=== PATIENT | female | born 1960 | race Two or more races ===

== ENCOUNTER 2025-01-08 12:49 | Emergency (ER) | payer MEDICARE, MEDICAID, SELFPAY ==
[2025-01-08 13:00] VITALS: BP 131/79; PULSE 89; RESP 20; TEMP 37.2; O2SAT 94; BMI 33.3
--- NOTE | 2025-01-08 13:03 | XR_ITS ---
Examination: CT brain head without contrast. 2-D sagittal coronal reconstructions Date and time of exam:January 08, 2025 1418 hours INDICATIONS: Onset headache today CTDI: vol (mGy):45.6 DLP: (mGycm):949 Technique: Multiple CT axial sections of the brain have been obtained, 5 mm slice thickness. Contrast has not been administered. 2-D sagittal, coronal reconstructions have been obtained Low dose protocols were performed. One or more of the following dose reduction techniques were used; automated exposure control, adjustment of the mA and/or KV according to patient size, use of iterative reconstruction technique. Findings: No significant ventricular enlargement. Intra-axial or extra-axial hemorrhage density is not seen. No mass effect or midline shift Basal cisterns are not remarkable. Fourth ventricle is midline. Cranial vault intact. Chronic frontal ethmoid maxillary antral sinusitis Impression: Negative for acute hemorrhage, mass effect or midline shift
--- NOTE | 2025-01-08 13:03 | XR_ITS ---
Examination: PA lateral chest 2 views TECHNIQUE: Upright PA lateral chest 2 views Exam date and time: January 08, 2025 1327 hours Comparison March 23, 2024 INDICATIONS: Headaches chest pain beginning 3 days ago. FINDINGS: Normal heart size Transvenous bipolar dual-chamber cardiac leads satisfactory position Moderate vascular congestion. No lobar pneumonia Significant osteopenia IMPRESSION: Findings consistent with early heart failure
[2025-01-08] MEDS: METOCLOPRAMIDE 5 MG TABLET 10 MG PO (13:10)
[2025-01-08] MEDS: HYDROcodone/APAP 5/325 TABLET 1 TAB PO (13:10)
--- NOTE | 2025-01-08 16:07 | PD.EDHA ---
ED Headache RME/HPI General Chief Complaint: Headache Stated Complaint: LEFT SINUS HEADACHE W/ CHEST CONGESTION; HX DEFRIB Time Seen by Provider: 01/08/25 13:05 Arrival date/time: 01/08/25 12:49 64-year-old female with history significant for CHF, hypertension, pacemaker presents to the emergency department today for complaints of headache, nasal congestion and believes she has sinus infection Limitations: no limitations Related Data Home Medications ?Medication ?Instructions ?Recorded ?Confirmed abatacept 125 mg/mL subcutaneous 125 mg subcut QWEEK 05/19/22 05/22/22 syringe (Orencia) albuterol sulfate 90 mcg/actuation 2 puff inhalation Q6H PRN Wheezing 05/19/22 05/22/22 aerosol inhaler azathioprine 50 mg tablet 50 mg PO QDAY 05/19/22 05/22/22 carvedilol 3.125 mg tablet 3.125 mg PO BID 05/19/22 05/22/22 cyclosporine 0.05 % eye drops in a 1 drp ophthalmic (eye) Q12H 05/19/22 05/22/22 dropperette (Restasis) famotidine 40 mg tablet 40 mg PO QDAY 05/19/22 05/22/22 levothyroxine 175 mcg tablet 175 mcg PO QDAY 05/19/22 05/22/22 loratadine 10 mg tablet 1 tab PO DAILY 05/19/22 05/22/22 pregabalin 75 mg capsule 75 mg PO TID 05/19/22 05/22/22 sertraline 50 mg tablet 50 mg PO QDAY 05/19/22 05/22/22 white petrolatum-mineral oil 57.3 1 applic ophthalmic (eye) QID PRN 05/19/22 05/22/22 %-42.5 % eye ointment (Lubricant Dry Eyes Eye) Previous Rx's ?Medication ?Instructions ?Recorded atorvastatin 20 mg tablet 40 mg (2 x 20 mg) PO HS #60 tabs 07/11/22 furosemide 20 mg tablet (Lasix) 20 mg PO Q OTHER DAY #30 tabs 07/11/22 losartan 25 mg tablet 25 mg PO QDAY #30 tabs 07/11/22 spironolactone 25 mg tablet 25 mg PO BID #60 tabs 07/11/22 naproxen 500 mg tablet 500 mg PO BID #30 tabs 02/12/23 hydrocodone 5 mg-acetaminophen 325 1 tab PO BID PRN pain #5 tabs 12/24/22 mg tablet amoxicillin 875 mg-potassium 1 tab PO BID 7 days #14 tabs 01/08/25 clavulanate 125 mg tablet benzonatate 100 mg capsule 100 mg PO TID #14 caps 01/08/25 Allergies Allergy/AdvReac Type Severity Reaction Status Date / Time No Known Allergies Allergy Verified 01/08/25 12:53 Review of Systems Review of Systems Systems Reviewed: All systems reviewed, normal except as documented Constitutional Constitutional: Reports system reviewed and no additional complaints, except as documented, Denies fever(s) and Denies headache(s) Eyes Eyes: Reports system reviewed and no additional complaints, except as documented and Denies blurry vision ENT Ears, Nose, Mouth, and Throat: Reports system reviewed and no additional complaints, except as documented, Denies headache(s), Denies nasal congestion and Denies nasal discharge Cardiovascular Cardiovascular: Reports system reviewed and no additional complaints, except as documented, Denies chest pain and Denies dyspnea Respiratory Respiratory: Reports system reviewed and no additional complaints, except as documented, Denies chest congestion, Denies cough and Denies dyspnea Gastrointestinal Gastrointestinal: Reports system reviewed and no additional complaints, except as documented and Denies abdominal pain Integumentary/Breasts Skin/Breast: Reports system reviewed and no additional complaints, except as documented and Denies rash Neurologic Neurologic: Reports system reviewed and no additional complaints, except as documented, Reports as per HPI and Denies headache(s) Past Medical History Past Medical History NEUROLOGIC: Positive Migraine; Negative Neurological Disorders or Seizures CARDIAC: Positive Cardiac Disorders, Cardiac Arrhythmia, Heart Murmur, Edema and Hypertension; Negative Congestive Heart Failure, Cellulitis or Varicose Veins RESPIRATORY: Negative Chronic Obstructive Pulmonary Disease (COPD), Asthma, Tuberculosis, Pulmonary Embolism or Sleep Apnea GASTROINTESTINAL: Positive Gastrointestinal Disorders and Gastroesophageal Reflux Disease; Negative Hepatitis GENITOURINARY: Negative Genitourinary Disorders or Renal Disease REPRODUCTIVE: Positive Previous Pregnancies MUSCULOSKELETAL: Positive Musculoskeletal Disorders, Arthritis, Rheumatoid Arthritis, Osteoporosis and Fibromyalgia ENT: Positive Cataracts ENDOCRINE: Positive Endocrine Disorders and Hypothyroidism; Negative Diabetes Mellitus Type 1 or Diabetes Mellitus Type 2 HEMATOLOGIC: Negative Blood Disorders or Sickle Cell Disease PSYCHO/SOCIAL: Positive Depression and Anxiety OTHER HISTORY: Negative Hospitalization, Autoimmune Disease, Shingles, Falls, Blood Transfusions, Blood Transfusion Reaction, Anesthesia Reactions, Chemotherapy, Radiation Therapy, MRSA, Chicken Pox, Measles, Mumps or Cancer Family History FAMILY HISTORY: Positive Family Gastrointestinal Problems and Family Surgery; Negative Family Psychiatric Problems, Family Respiratory Disorders, Family Cardiac Disorders, Family Cancer or Family Anesthesia Reaction Surgical History SURGICAL: Positive Pacemaker (defibrillator in place) and Tubal Ligation; Negative Cardiac Surgery, Abdominal Surgery, Nephrectomy or Joint Replacement Social History SMOKING STATUS: Light (< 1 pack/day) SUBSTANCE USE: does not use ED Exam General Limitations: Present no limitations General appearance: Present alert and in no apparent distress Head Head exam: Present atraumatic, normocephalic and normal inspection Eye Eye exam: Present normal appearance, PERRL and EOMI; Absent conjunctival injection ENT ENT exam: Present normal exam, normal oropharynx and mucous membranes moist Neck Neck exam: Present normal inspection, full ROM and trachea midline Chest Chest inspection: Present normal inspection and symmetric chest wall rise Respiratory Respiratory exam: Present normal lung sounds bilaterally; Absent respiratory distress Cardiovascular Cardiovascular exam: Present regular rate, normal rhythm and normal heart sounds Abdominal Exam Abdominal exam: Present soft and normal bowel sounds; Absent distention, tenderness, guarding, rebound or rigidity Extremities Exam Extremities exam: Present normal inspection and full ROM Back Exam Back exam: Present normal inspection and full ROM Neurological Exam Neurological exam: Present alert, oriented X3, CN II-XII intact, normal gait and reflexes normal; Absent motor sensory deficit Psychiatric Psychiatric exam: Present normal affect and normal mood Skin Skin exam: Present warm, dry, intact and normal color; Absent rash Course Quality Measures none Orders Category Date Time Status Bedside Influenza A&B Antigen Test NOW Care 01/08/25 13:[address] head/brain wo con Stat Exams 01/08/25 13:03 Completed XR chest 2V Stat Exams 01/08/25 13:03 Completed HYDROcodone*/APAP 5/325 [[place] 5/325] Med 01/08/25 13:03 Discontinued 1 tab PO X1 ONE Metoclopramide [Reglan] Med 01/08/25 13:03 Discontinued 10 mg PO X1 ONE Vital Signs Vital signs: Vital Signs Temperature 99.0 F 01/08/25 13:00 Pulse Rate 89 01/08/25 13:00 Respiratory Rate 20 01/08/25 13:00 Blood Pressure 131/79 H 01/08/25 13:00 Pulse Oximetry (%) 94 L 01/08/25 13:00 Oxygen Delivery Method Room Air 01/08/25 13:00 O2 saturation 94% room air Headache MDM Narrative MDM Narrative:: 64-year-old female with history significant for CHF, hypertension, pacemaker presents to the emergency department today for complaints of headache, nasal congestion and believes she has sinus infection On exam patient well-appearing patient does not appear ill or toxic patient does not appear in acute distress Patient has URI symptoms patient has cough, congestion runny nose and patient reports sinus pressure Chest x-ray obtained no acute pneumonic infiltrates noted Patient checked for flu which came back negative CT scan of the head obtained no acute emergent findings noted but patient appears to have sinusitis which may be acute on chronic Patient discharged home in no distress to follow-up with primary care doctor in the next 24 to 48 hours and for any worsening symptoms to return to the ER immediately Patient data External records reviewed:: [facility] previous records Clinical information provided by:: patient Social determinants that could affect healthcare access:: none Patient has the following chronic illnesses:: None How is presenting disease/condition affected by chronic disease/condition?: no chronic disease Evaluation data The following diagnostics were reviewed and interpreted by me:: lab results and radiology exam(s) Lab and/or radiology exams considered but not ordered:: Labs radiology obtained Interpretation Summary: Reviewed by me Medications / Prescriptions Medications or Prescriptions considered but not ordered:: Given Medication administrations:: Medication Administration History Discontinued Medications Hydrocodone Bitart/Acetaminophen (Hydrocodone/Apap 5/325 Tablet) 1 tab PO X1 ONE Stop: 01/08/25 13:04 Last Admin: 01/08/25 13:10 Dose: 1 tab Documented By: AMADOU Metoclopramide HCl (Metoclopramide 5 Mg Tablet) 10 mg PO X1 ONE Stop: 01/08/25 13:04 Last Admin: 01/08/25 13:10 Dose: 10 mg Documented By: AMADOU Given Consultations Consultation(s) initiated? (list below): No Diagnosis Differential diagnosis headache: migraine, tension headache, subarachnoid hemorrhage and headache Most likely diagnosis given after review of the tests above:: Headache Admission Indicated Admission indicated?: not indicated Admission Request Was there a request for admission?: No Disposition Plan Disposition Plan: Discharge Discharge Attestation Discharge Attestation: The patient and all family members were given an opportunity to ask questions and understood the discharge instructions. Discharge instructions specifically effects, indications for sooner follow up or return to the emergency department, and the expected course of current diagnosis. Patient condition: Stable Discharge Plan Plan Patient Disposition: HOME (Self Care) Disposition Comment: Stable Prescriptions/Referrals Prescriptions/Med Rec: New benzonatate 100 mg capsule 100 mg PO TID Qty: 14 0RF amoxicillin-pot clavulanate 875-125 mg tablet 1 tab PO BID 7 Days Qty: 14 0RF No Action levothyroxine 175 mcg Tablet 175 mcg PO QDAY famotidine 40 mg Tablet 40 mg PO QDAY azathioprine 50 mg Tablet 50 mg PO QDAY carvedilol 3.125 mg Tablet 3.125 mg PO BID Rx Instructions: must administer with a meal/food albuterol sulfate 90 mcg/actuation Hfa Aerosol Inhaler 2 puff INHALATION Q6H PRN (Reason: Wheezing) sertraline 50 mg Tablet 50 mg PO QDAY loratadine 10 mg tablet 1 tab PO DAILY Patient Comments: TAKE 1 TABLET BY MOUTH DAILY FOR ALLERGIES AND INSECT BITES cyclosporine [Restasis] 0.05 % Dropperette 1 drp OPHTHALMIC (EYE) Q12H pregabalin 75 mg Capsule 75 mg PO TID Lubricant Eye 57.3-42.5 % Ointment 1 applic OPHTHALMIC (EYE) QID PRN (Reason: Dry Eyes) Orencia 125 mg/mL Syringe 125 mg SUBCUT QWEEK atorvastatin 20 mg Tablet 40 mg PO HS Qty: 60 0RF losartan 25 mg Tablet 25 mg PO QDAY Qty: 30 0RF spironolactone 25 mg Tablet 25 mg PO BID Qty: 60 0RF furosemide [Lasix] 20 mg tablet 20 mg PO Q OTHER DAY Qty: 30 0RF hydrocodone-acetaminophen 5-325 mg tablet 1 tab PO BID MDD 2 PRN (Reason: pain) Qty: 5 0RF naproxen 500 mg tablet 500 mg PO BID Qty: 30 0RF Referrals: Chris (PCP)Ryder MD [Primary Care Provider] - In 1 week Problem List Clinical Impression: Sinusitis, Cough Patient/Caregiver Discharge Instructions Education Materials: Causes of Sinusitis Additional Instructions: Please follow up with your primary care doctor in the next 24-48hrs for any worsening symptoms return here immediately Print Language: Setswana Stand Alone Forms: Francheska Award Info., Patient Portal Info Letter PA/RESPIRATORY MANAGER Supervising Physician PA/RESPIRATORY MANAGER Supervising Physician: Dr Longoria
== END 2025-01-08 16:20 | disposition home or self-care (01) ==
PROVIDERS: Emergency Provider Emergency Medicine; PCP Family Medicine
DX: J32.8 Other chronic sinusitis (principal); F17.210 Nicotine dependence, cigarettes, uncomplicated
CPT/HCPCS: 70450; 71046; 99284; A9270

== ENCOUNTER → 2025-01-15 | Outpatient (CLI) | payer MEDICARE, SELFPAY ==
--- NOTE | 2025-01-15 14:20 | XR_ITS ---
Examination: Bone densitometry Date and time of exam:January 15, 2025 1350 hours INDICATIONS: Menopause age 49, steroid administration with COPD Technique: Lumbar spine and hip total bone mineralization values of an calculated. Peak reference and age match control results have been displayed. Findings: Lumbar spine total bone mineralization is0.694 gm/cm2. This is 3.2 standard deviations below peak reference. This is 1.4 standard deviations below age-matched controls. Hip total bone mineralization is 0.613 gm/cm2 This is 2.6 standard deviations below peak reference. This is 1.5 standard deviations below age-matched controls Impression: There is osteoporosis based on lumbar spine measurements. There is osteoporosis based on hip measurements
--- NOTE | 2025-01-15 14:45 | XR_ITS ---
Examination: Screening digital mammography, bilateral Computer aided detection 3-D breast Tomosynthesis, bilateral Date and time of exam: January 15, 2025 1333 hours Indication: Screening Technique: Nonmagnified MLO, CC views of the breasts to been obtained, reconstructed from 3-D Tomosynthesis images. R2 computer aided detection program utilized for evaluation of suspicious masses and/or abnormal calcifications. 3-D Tomosynthesis images obtained. Findings: Scattered areas of fibroglandular density. Benign calcifications. No suspicious masses Pulse generator in the left axilla degrades left MLO image quality Impression: BI-RADS category II: Benign Findings. Recommend 1 year follow-up mammogram. Pulse generator in the left axilla degrades left MLO breast image quality, recommend baseline bilateral breast sonography follow-up
== END | disposition home or self-care (01) ==
PROVIDERS: Referring Provider Family Medicine; Visit Provider Family Medicine
DX: Z12.31 Encounter for screening mammogram for malignant neoplasm of breast (principal); R92.323 Mammographic fibroglandular density, bilateral breasts; R92.1 Mammographic calcification found on diagnostic imaging of breast; M81.0 Age-related osteoporosis without current pathological fracture
CPT/HCPCS: 77063; 77067; 77080

== ENCOUNTER → 2025-04-17 | Outpatient (CLI) | payer MEDICARE, SELFPAY ==
--- NOTE | 2025-04-17 09:15 | XR_ITS ---
Examination: Breast ultrasound complete, bilateral Date and time of exam: April 17, 2025 0825 hours INDICATIONS: Limited mammogram January 15, 2025 secondary to cardiac pulse generator Technique: Real-time grayscale ultrasonographic imaging bilateral breasts, including all 4 quadrants as well as nipple retroareolar and axillary regions. Findings: Sonographic images right and left breast demonstrated no cystic or solid masses IMPRESSION: BI-RADS Category 1: Negative study
== END | disposition home or self-care (01) ==
PROVIDERS: PCP Family Medicine; Referring Provider Family Medicine; Visit Provider Family Medicine
DX: N63.0 Unspecified lump in unspecified breast (principal)
CPT/HCPCS: 76641

== ENCOUNTER 2025-08-17 12:43 | Emergency (ER) | payer MEDICARE, MEDICAID, SELFPAY ==
[2025-08-17 12:45] VITALS: BMI 31.3
[2025-08-17 13:03] VITALS: BP 121/78; PULSE 88; RESP 18; TEMP 36.9; O2SAT 100
--- NOTE | 2025-08-17 13:10 | PD.EDRME ---
Rapid Medical Screening Exam [facility] Arrival date/time: 08/17/25 12:43 65-year-old female with a history of hypertension, hyperlipidemia, hypothyroidism presents to the emergency room with a chief complaint of a bilateral rash to her arms. Patient also states she has low platelet count and was told to come to the emergency room if her rash does not go away I have greeted and performed a focused initial assessment of this patient. A comprehensive ED assessment and evaluation of the patient, analysis of all test results, and completion of the medical decision making process will be conducted by additional ED providers. Chief Complaint: General Adult/Misc Complain Time Seen by Provider: 08/17/25 12:56 Vital signs: Vital Signs Temperature 98.5 F 08/17/25 13:03 Pulse Rate 88 08/17/25 13:03 Respiratory Rate 18 08/17/25 13:03 Blood Pressure 121/78 08/17/25 13:03 Pulse Oximetry (%) 100 08/17/25 13:03 Oxygen Delivery Method Room Air 08/17/25 13:03 Vital signs reviewed by provider: Yes Exam: Bilateral upper extremity rash Clear bilateral lung sounds. Strong and regular rhythm S1 and S2 noted Clinical Impression: Petechiae/anemia/
[2025-08-17 13:44] LABS: Collection Type, Urine Clean Catch
[2025-08-17 13:58] LABS: Bilirubin,Urine Negative (Negative); Blood,Urine Negative (Negative); Clarity,Urine Clear (Clear/Hazy); Color,Urine Colorless (Lt Yel-Yel); Culture Indicated,Urine Not Indicated; Glucose, Urine Negative (Negative); Ketones,Urine Negative (Negative); Leukocyte Esterase,Urine Negative (Negative); Nitrite,Urine Negative (Negative); PH,Urine 6.5 (5.0-7.0); Protein,Urine Negative (Neg - Trace); RBC,Urine < 1 /hpf (0-3); Specific Gravity,Urine 1.006 (1.001-1.035); Squamous Epithelial Cell,Urine < 1 /hpf (0-5); Urobilinogen,Urine Negative mg/dL (0.0-1.0); WBC,Urine < 1 /hpf (0-5)
[2025-08-17 14:32] LABS: Basophils # (Auto) 0.0 Thou/mm3 (0.0-0.2); Basophils % (Auto) 0 % (0-2.5); Eosinophils # (Auto) 0.2 Thou/mm3 (0.0-0.5); Eosinophils % (Auto) 3 % (0-10); Hematocrit 31.8 % (36.0-46.0); Hemoglobin 10.9 g/dL (12.0-16.0); Immature Granulocytes Auto 0.01 Thou/mm3 (0.00-0.00); Lymphocytes # (Auto) 2.3 Thou/mm3 (1.0-4.8); Lymphocytes % (Auto) 49 % (10-50); Mean Corpuscular HGB Conc 34.3 g/dl (31.0-37.0); Mean Corpuscular Hemoglobin 40.2 pg (25.0-35.0); Mean Corpuscular Volume 117 fL (80-100); Monocytes # (Auto) 0.7 Thou/mm3 (0.0-0.8); Monocytes % (Auto) 15 % (0-12); Neutrophils # (Auto) 1.5 Thou/mm3 (1.8-7.7); Neutrophils % (Auto) 32 % (37-80); Nucleated Red Blood Cell # 0.00 Thou/mm3 (0.00-0.00); Nucleated Red Blood Cell % 0 /100 WBC (0); Platelet Count 147 Thou/mm3 (140-440); RDW Standard Deviation 67.7 fL (36.4-46.3); Red Blood Count 2.71 Miln/mm3 (4.00-5.20); White Blood Count 4.7 Thou/mm3 (3.6-11.0)
[2025-08-17 14:50] LABS: INR 1.0 (0.9-1.3); Partial Thromboplastin Time 24.6 Seconds (22.0-36.0); Prothrombin Time 10.2 Seconds (9.0-12.2)
[2025-08-17 15:05] LABS: Alanine Aminotransferase 15 U/L (10-49); Albumin, Serum 4.2 gm/dL (3.4-4.8); Albumin/Globulin Ratio 1.3 (1.2-2.2); Alkaline Phosphatase 116 U/L (46-116); Anion Gap 6 (7-16); Aspartate Amino Transferase 77 U/L (0-34); BUN/Creatinine Ratio 14 Ratio (12-20); Bilirubin,Total 0.8 mg/dL (0.3-1.2); Blood Urea Nitrogen 11 mg/dL (9-23); Calcium 10.4 mg/dL (8.3-10.6); Calcium (Corrected) 10.4 mg/dL (8.5-10.1); Carbon Dioxide 26.7 mMol/L (20.0-31.0); Chloride 110 mMol/L (98-107); Creatinine (Component) 0.8 mg/dL (0.6-1.3); Estimated Creatinine Clearance 59.0 mL/min (>60); Globulin 3.2 gm/dL (2.3-3.5); Glucose 97 mg/dL (74-106); Osmolality,Calculated 284 (275-295); Potassium 4.7 mMol/L (3.4-5.1); Sodium 143 mMol/L (136-145); Total Protein 7.4 gm/dL (5.7-8.2); eGFR > 60 See Note
--- NOTE | 2025-08-17 16:33 | PD.EDADULT ---
ED General RME/HPI General Chief complaint: General Adult/Misc Complain Stated complaint: MULTIPLE COMPLAINTS Time Seen by Provider: 08/17/25 12:56 Arrival date/time: 08/17/25 12:43 CC: Rash HPI patient has a nonitching flat rash to her forearms, HPI onset 2 weeks ago slowly spreading. Patient discussed over the phone with her PCP who put her on Keflex with no avail. Patient takes 4 mg of prednisone every day for her rheumatoid arthritis. Patient states the right forearm itched initially but currently does not itch anymore. Patient denies bleeding or oozing or spreading anywhere else other than these 2 areas and a small area on the left medial ankle. RME / HPI RME / HPI narrative: 08/17/25 12:43 65-year-old female with a history of hypertension, hyperlipidemia, hypothyroidism presents to the emergency room with a chief complaint of a bilateral rash to her arms. Patient also states she has low platelet count and was told to come to the emergency room if her rash does not go away I have greeted and performed a focused initial assessment of this patient. A comprehensive ED assessment and evaluation of the patient, analysis of all test results, and completion of the medical decision making process will be conducted by additional ED providers. Exam: Bilateral upper extremity rash Clear bilateral lung sounds. Strong and regular rhythm S1 and S2 noted Impression: Petechiae/anemia/ Related Data Home Medications ?Medication ?Instructions ?Recorded ?Confirmed abatacept 125 mg/mL subcutaneous 125 mg subcut QWEEK 05/19/22 05/22/22 syringe (Orencia) albuterol sulfate 90 mcg/actuation 2 puff inhalation Q6H PRN Wheezing 05/19/22 05/22/22 aerosol inhaler azathioprine 50 mg tablet 50 mg PO QDAY 05/19/22 05/22/22 carvedilol 3.125 mg tablet 3.125 mg PO BID 05/19/22 05/22/22 cyclosporine 0.05 % eye drops in a 1 drp ophthalmic (eye) Q12H 05/19/22 05/22/22 dropperette (Restasis) famotidine 40 mg tablet 40 mg PO QDAY 05/19/22 05/22/22 levothyroxine 175 mcg tablet 175 mcg PO QDAY 05/19/22 05/22/22 loratadine 10 mg tablet 1 tab PO DAILY 05/19/22 05/22/22 pregabalin 75 mg capsule 75 mg PO TID 05/19/22 05/22/22 sertraline 50 mg tablet 50 mg PO QDAY 05/19/22 05/22/22 white petrolatum-mineral oil 57.3 1 applic ophthalmic (eye) QID PRN 05/19/22 05/22/22 %-42.5 % eye ointment (Lubricant Dry Eyes Eye) Previous Rx's ?Medication ?Instructions ?Recorded atorvastatin 20 mg tablet 40 mg (2 x 20 mg) PO HS #60 tabs 07/11/22 furosemide 20 mg tablet (Lasix) 20 mg PO Q OTHER DAY #30 tabs 07/11/22 losartan 25 mg tablet 25 mg PO QDAY #30 tabs 07/11/22 spironolactone 25 mg tablet 25 mg PO BID #60 tabs 07/11/22 naproxen 500 mg tablet 500 mg PO BID #30 tabs 12/03/22 hydrocodone 5 mg-acetaminophen 325 1 tab PO BID PRN pain #5 tabs 12/24/22 mg tablet benzonatate 100 mg capsule 100 mg PO TID #14 caps 01/08/25 hydrocortisone 2.5 % topical cream 1 applic topical BID PRN rash #20 08/17/25 grams Allergies Allergy/AdvReac Type Severity Reaction Status Date / Time No Known Allergies Allergy Verified 01/08/25 12:53 Review of Systems Review of Systems Narrative Review of Systems: GEN: No fever, no chills, no weight loss EYES: No discharge, no visual changes, no pain HEENT: No ear pain, no congestion, no sore throat PULM: No shortness of breath, no cough, no congestion CV: No chest pain, no dyspnea on exertion, no palpitations GI: No nausea, no vomiting, no diarrhea, no pain, no constipation : No frequency, no urgency, no dysuria MUSC/SKEL: No joint pain, no back pain SKIN: + rash PSYCH: No hallucinations, no depression HEME/LYMPH: No easy bleeding or bruising tendencies NEURO: No weakness, no headache Past Medical History Past Medical History NEUROLOGIC: Positive Migraine; Negative Neurological Disorders or Seizures CARDIAC: Positive Cardiac Disorders, Cardiac Arrhythmia, Heart Murmur, Edema and Hypertension; Negative Congestive Heart Failure, Cellulitis or Varicose Veins RESPIRATORY: Negative Chronic Obstructive Pulmonary Disease (COPD), Asthma, Tuberculosis, Pulmonary Embolism or Sleep Apnea GASTROINTESTINAL: Positive Gastrointestinal Disorders and Gastroesophageal Reflux Disease; Negative Hepatitis GENITOURINARY: Negative Genitourinary Disorders or Renal Disease REPRODUCTIVE: Positive Previous Pregnancies MUSCULOSKELETAL: Positive Musculoskeletal Disorders, Arthritis, Rheumatoid Arthritis, Osteoporosis and Fibromyalgia ENT: Positive Cataracts ENDOCRINE: Positive Endocrine Disorders and Hypothyroidism; Negative Diabetes Mellitus Type 1 or Diabetes Mellitus Type 2 HEMATOLOGIC: Negative Blood Disorders or Sickle Cell Disease PSYCHO/SOCIAL: Positive Depression and Anxiety OTHER HISTORY: Negative Hospitalization, Autoimmune Disease, Shingles, Falls, Blood Transfusions, Blood Transfusion Reaction, Anesthesia Reactions, Chemotherapy, Radiation Therapy, MRSA, Chicken Pox, Measles, Mumps or Cancer Family History FAMILY HISTORY: Positive Family Gastrointestinal Problems and Family Surgery; Negative Family Psychiatric Problems, Family Respiratory Disorders, Family Cardiac Disorders, Family Cancer or Family Anesthesia Reaction Surgical History SURGICAL: Positive Pacemaker (defibrillator in place) and Tubal Ligation; Negative Cardiac Surgery, Abdominal Surgery, Nephrectomy or Joint Replacement Social History SMOKING STATUS: Current every day smoker SUBSTANCE USE: does not use ED Exam Narrative Physical exam: [General: Frail but not in any acute distress Head normocephalic HEENT: Within acceptable limits Neck is supple nontender Chest equal chest rise nontender to palpation Respiratory: Clear to auscultation no wheezes crackles or rubs CV: Rate rhythm is regular no murmurs rubs or clicks Abdomen is distended secondary to body habitus soft nontender no masses positive bowel sounds all 4 quadrants Back: No CVA tenderness no spinous process tenderness from cervical spine thoracic and lumbar spine Skin: Fine widely scattered flat pale erythematous poorly defined macular regions all over the forearms mostly on the sun exposed or volar surface. No open lesions induration ulceration or crepitus. Otherwise skin is intact no petechiae rash induration ulceration or crepitus Extremities: Moving all extremity against resistance cap refill less than 2 seconds neurosensory intact Neuro: Awake alert oriented x3 Glascow coma 15 no focal deficits] Course Course Course Narrative: I suspect this is nonbacterial in nature patient can discontinue with cephalexin will give the patient some cortisone cream for atopic application. Quality Measures none Orders Category Date Time Status CBC Stat Lab 08/17/25 14:11 Completed Comprehensive Metabolic Panel Stat Lab 08/17/25 14:11 Completed Partial Thromboplastin Time Stat Lab 08/17/25 14:11 Completed Prothrombin Time with INR Stat Lab 08/17/25 14:11 Completed Urinalysis, C/S if Indicated Stat Lab 08/17/25 13:35 Completed Vital Signs Vital signs: Vital Signs Temperature 98.5 F 08/17/25 13:03 Pulse Rate 88 08/17/25 13:03 Respiratory Rate 18 08/17/25 13:03 Blood Pressure 121/78 08/17/25 13:03 Pulse Oximetry (%) 100 08/17/25 13:03 Oxygen Delivery Method Room Air 08/17/25 13:03 Discharge Plan Plan Patient Disposition: HOME (Self Care) Patient condition on transfer: Stable Prescriptions/Referrals Prescriptions/Med Rec: New hydrocortisone 2.5 % cream 1 applic topical BID PRN (Reason: rash) Qty: 20 0RF No Action levothyroxine 175 mcg Tablet 175 mcg PO QDAY famotidine 40 mg Tablet 40 mg PO QDAY azathioprine 50 mg Tablet 50 mg PO QDAY carvedilol 3.125 mg Tablet 3.125 mg PO BID Rx Instructions: must administer with a meal/food albuterol sulfate 90 mcg/actuation Hfa Aerosol Inhaler 2 puff INHALATION Q6H PRN (Reason: Wheezing) sertraline 50 mg Tablet 50 mg PO QDAY loratadine 10 mg tablet 1 tab PO DAILY Patient Comments: TAKE 1 TABLET BY MOUTH DAILY FOR ALLERGIES AND INSECT BITES cyclosporine [Restasis] 0.05 % Dropperette 1 drp OPHTHALMIC (EYE) Q12H pregabalin 75 mg Capsule 75 mg PO TID Lubricant Eye 57.3-42.5 % Ointment 1 applic OPHTHALMIC (EYE) QID PRN (Reason: Dry Eyes) Orencia 125 mg/mL Syringe 125 mg SUBCUT QWEEK atorvastatin 20 mg Tablet 40 mg PO HS Qty: 60 0RF losartan 25 mg Tablet 25 mg PO QDAY Qty: 30 0RF spironolactone 25 mg Tablet 25 mg PO BID Qty: 60 0RF furosemide [Lasix] 20 mg tablet 20 mg PO Q OTHER DAY Qty: 30 0RF hydrocodone-acetaminophen 5-325 mg tablet 1 tab PO BID MDD 2 PRN (Reason: pain) Qty: 5 0RF naproxen 500 mg tablet 500 mg PO BID Qty: 30 0RF benzonatate 100 mg capsule 100 mg PO TID Qty: 14 0RF Referrals: Chris (PCP),MD Ryder [Primary Care Provider, Family Practice] - In 1 week Problem List Clinical Impression: Rash Patient/Caregiver Discharge Instructions Other Activity Instructions:: Use the hydrocortisone cream for the next 4 to 5 days see if there is any difference otherwise follow-up with your primary care doctor. Print Language: Nauruan Stand Alone Forms: [employer] Award Info., Patient Portal Info Letter, Work/School Release PA/IT DATA ARCHITECT Supervising Physician PA/IT DATA ARCHITECT Supervising Physician: Jorge Blount ENP [facility] Clinical Information Provided by: patient Medical Records reviewed [facility] Meds/Rx considered, not ordered None Labs/Rad/Tests considered, not ordered None Chronic Illness/Social Conditions Explain: Rheumatoid arthritis EKG EKG not done Labs Labs: interpreted by dc Lab(s) Interpretation(s): CBC shows no leukocytosis there is a stable anemia with hemoglobin of 10.9 and 31.8 respectively no thrombocytopenia. Coags within acceptable limits CMP shows chloride of 110 no other electrolyte imbalances renal impairment transaminitis or T. bili elevation Urine is unremarkable for UTI. Imaging Imaging interpretation: none
[2025-08-17 21:24] LABS: Path Review Blood Smear Sent to Pathologist
== END 2025-08-17 16:44 | disposition home or self-care (01) ==
PROVIDERS: Nurse Practitioner Family; Emergency Provider Family Medicine; PCP Family Medicine
DX: L29.9 Pruritus, unspecified (principal); M06.9 Rheumatoid arthritis, unspecified; D64.9 Anemia, unspecified; E03.9 Hypothyroidism, unspecified; E78.5 Hyperlipidemia, unspecified; I10 Essential (primary) hypertension; Z79.52 Long term (current) use of systemic steroids; Z95.0 Presence of cardiac pacemaker
CPT/HCPCS: 36415; 80053; 81001; 85025; 85610; 85730; 99282